=== PATIENT | female | born 1970 | race Caucasian/White ===

== ENCOUNTER 2019-08-29 22:35 | Emergency (ER) | payer OTHER ==
[~2019-08-29] VITALS: Ht 170.2 cm; Wt 99.8 kg
[2019-08-30 01:57] VITALS: BP 131/78
[2019-08-30] MEDS ORDERED: KETOROLAC TROMETH 60MG/2ML VIAL IM ONE (02:00)
[2019-08-30] MEDS ORDERED: methylPREDNISolone SOD SUCC 125 MG/2 ML VL IM ONE (02:00)
[2019-08-30] MEDS ORDERED: ONDANSETRON ODT 4 MG TAB PO ONE (02:15)
== END 2019-08-30 02:45 | disposition home or self-care (01) ==
LOC: ER 22:37
DX: S13.9XXA Sprain of joints and ligaments of unspecified parts of neck, initial encounter (principal); S33.5XXA Sprain of ligaments of lumbar spine, initial encounter; Z88.0 Allergy status to penicillin; V43.62XA Car passenger injured in collision with other type car in traffic accident, initial encounter; Y93.89 Activity, other specified; Y99.8 Other external cause status; Y92.410 Unspecified street and highway as the place of occurrence of the external cause
CPT/HCPCS: 70450; 72125; 72128; 72131; 73130; 96372; 99285; J1885; J2930; Q0162